=== PATIENT | male | born 1970 | race Caucasian/White ===

== ENCOUNTER 2025-04-13 12:11 | Emergency (ER) | payer BC ==
[2025-04-13 12:16] VITALS: BP 135/102; PULSE 66; RESP 18; TEMP 97.5; BMI 23.6
[2025-04-13] MEDS ORDERED: diphenhydrAMINE HCL 25 MG CAPSULE (FP) PO ONE (12:35)
[2025-04-13] MEDS ORDERED: ACETAMINOPHEN 325 MG TABLET (FP) ONE (12:36)
[2025-04-13] MEDS: diphenhydrAMINE HCL 25 MG CAPSULE (FP) PO ONE (12:41)
[2025-04-13] MEDS ORDERED: DEXAMETHASONE 4 MG TABLET (FP) ONE (12:42)
[2025-04-13] MEDS: DEXAMETHASONE 4 MG TABLET (FP) PO ONE (12:44)
[2025-04-13] MEDS: ACETAMINOPHEN 500 MG TABLET (FP) PO ONE (12:47)
== END 2025-04-13 13:01 | disposition home or self-care (01) ==
LOC: FER 12:11
DX: T63.441A Toxic effect of venom of bees, accidental (unintentional), initial encounter (principal)
CPT/HCPCS: 99283-25